=== PATIENT | male | born 1985 | race Caucasian/White ===

== ENCOUNTER 2017-04-05 21:44 | Emergency (ER) | payer OTHER ==
[2017-04-06 00:21] VITALS: BP 157/104
== END 2017-04-06 00:22 | disposition home or self-care (01) ==
LOC: ED 21:44
DX: T78.1XXA Other adverse food reactions, not elsewhere classified, initial encounter (principal); R06.7 Sneezing; I10 Essential (primary) hypertension; X58.XXXA Exposure to other specified factors, initial encounter
CPT/HCPCS: J0171; J1200; J2930; J3490; J7613; J7644

== ENCOUNTER 2018-06-03 02:09 | Emergency (ER) | payer SELFPAY ==
[~2018-06-03] VITALS: Ht 172.7 cm; Wt 96.6 kg
[2018-06-03 02:16] VITALS: Ht 172.7 cm; Wt 96.6 kg
[2018-06-03 02:40] LABS: BASOPHIL % 0.6 % (0-2); PLATELET COUNT 370 x10^3mcL (130-400); RED CELL DISTRIBUTION WIDTH 13.1 % (11.5-14.5)
[2018-06-03 02:49] LABS: CALCIUM 8.9 mg/dL (8.5-10.1); CARBON DIOXIDE 23.4 mmol/L (21-32); CHLORIDE SERUM 106 mmol/L (98-107); GFR1 > 60 mL/min; GLUCOSE SERUM 108 mg/dL (74-106); POTASSIUM SERUM 3.8 mmol/L (3.5-5.1); SODIUM SERUM 144 mmol/L (136-145)
[2018-06-03 04:24] LABS: AMPHETAMINE QUAL UR NONE DETECTED (See below)
[2018-06-03 04:51] VITALS: BP 133/90
== END 2018-06-03 04:51 | disposition home or self-care (01) ==
LOC: ED 02:09
PROVIDERS: Emergency Medicine
DX: R55 Syncope and collapse (principal); R42 Dizziness and giddiness; F43.9 Reaction to severe stress, unspecified; R51 Headache; M79.602 Pain in left arm; I10 Essential (primary) hypertension
CPT/HCPCS: 36415; G0480; Q0092

== ENCOUNTER 2019-02-03 07:11 | Emergency (ER) | payer MEDICAID ==
[~2019-02-03] VITALS: Ht 172.7 cm; Wt 103.4 kg
[2019-02-03 07:15] VITALS: Ht 172.7 cm; Wt 103.4 kg
[2019-02-03 08:04] LABS: BASOPHIL % 0.4 % (0-2); PLATELET COUNT 300 x10^3mcL (130-400); RED CELL DISTRIBUTION WIDTH 13.5 % (11.5-14.5)
[2019-02-03 08:25] LABS: CALCIUM 8.1 mg/dL (8.5-10.1); CHLORIDE SERUM 108 mmol/L (98-107); CREATININE SERUM 0.8 mg/dL (0.7-1.3); GFR1 > 60 mL/min; GLUCOSE SERUM 105 mg/dL (74-106); POTASSIUM SERUM 3.9 mmol/L (3.5-5.1); SODIUM SERUM 143 mmol/L (136-145)
[2019-02-03 08:30] LABS: ALBUMIN 3.1 g/dL (3.4-5.0); ALKALINE PHOSPHATASE 67 U/L (46-116); ALT/SGPT 31 U/L (16-63); AST/SGOT 13 U/L (15-37); BILIRUBIN TOTAL 0.24 mg/dL (0.20-1.00); CHOLESTEROL 172 mg/dL (<200); HDL CHOLESTEROL 52 mg/dL (40-60); PHOSPHOROUS 2.4 mg/dL (2.5-4.9); TOTAL PROTEIN, SERUM 6.4 g/dL (6.4-8.2); URIC ACID 5.1 mg/dL (3.5-7.2)
[2019-02-03 08:50] VITALS: BP 119/68
== END 2019-02-03 08:50 | disposition home or self-care (01) ==
LOC: ED 07:11
PROVIDERS: Emergency Medicine
DX: F10.239 Alcohol dependence with withdrawal, unspecified (principal); I10 Essential (primary) hypertension; Z86.73 Personal history of transient ischemic attack (TIA), and cerebral infarction without residual deficits; Y90.9 Presence of alcohol in blood, level not specified
CPT/HCPCS: J2060; J7030; Q0092

== ENCOUNTER 2019-03-06 04:26 | Emergency (ER) | payer MEDICAID ==
[~2019-03-06] VITALS: Ht 172.7 cm; Wt 96.6 kg
[2019-03-06 04:30] VITALS: Ht 172.7 cm; Wt 96.6 kg
[2019-03-06 05:01] LABS: BASOPHIL % 0.5 % (0-2); PLATELET COUNT 283 x10^3mcL (130-400); RED CELL DISTRIBUTION WIDTH 13.4 % (11.5-14.5)
[2019-03-06 05:07] LABS: microscopic required? NO
[2019-03-06 05:16] LABS: CALCIUM 9.1 mg/dL (8.5-10.1); CARBON DIOXIDE 25.1 mmol/L (21-32); CHLORIDE SERUM 105 mmol/L (98-107); CREATININE SERUM 0.9 mg/dL (0.7-1.3); GFR1 > 60 mL/min; GLUCOSE SERUM 128 mg/dL (74-106); POTASSIUM SERUM 3.5 mmol/L (3.5-5.1); SODIUM SERUM 141 mmol/L (136-145)
[2019-03-06 05:22] LABS: UA SPECIFIC GRAVITY >=1.030 (1.005-1.035); urine erythrocyte NEGATIVE (NEGATIVE)
[2019-03-06 05:30] LABS: ALBUMIN 3.7 g/dL (3.4-5.0); ALKALINE PHOSPHATASE 81 U/L (46-116); ALT/SGPT 44 U/L (16-63); AST/SGOT 17 U/L (15-37); BILIRUBIN TOTAL 0.37 mg/dL (0.20-1.00); FREE T4 0.91 ng/dL (0.76-1.46); TOTAL PROTEIN, SERUM 7.5 g/dL (6.4-8.2)
[2019-03-06 05:33] LABS: AMPHETAMINE QUAL UR NONE DETECTED (See below)
[2019-03-06 05:56] VITALS: BP 142/43
== END 2019-03-06 05:56 | disposition home or self-care (01) ==
LOC: ED 04:26
PROVIDERS: Emergency Medicine
DX: R20.2 Paresthesia of skin (principal); F10.99 Alcohol use, unspecified with unspecified alcohol-induced disorder; I10 Essential (primary) hypertension; Z86.73 Personal history of transient ischemic attack (TIA), and cerebral infarction without residual deficits
CPT/HCPCS: 84439; G0480; J2060; Q0092

== ENCOUNTER 2019-05-19 15:31 | Emergency (ER) | payer SELFPAY ==
[~2019-05-19] VITALS: Ht 170.2 cm; Wt 96.2 kg
[2019-05-19 15:34] VITALS: Ht 170.2 cm; Wt 96.2 kg
[2019-05-19 16:28] LABS: BASOPHIL % 0.5 % (0-2); PLATELET COUNT 347 x10^3mcL (130-400); RED CELL DISTRIBUTION WIDTH 12.8 % (11.5-14.5)
[2019-05-19 16:43] LABS: CALCIUM 9.1 mg/dL (8.5-10.1); CARBON DIOXIDE 26.5 mmol/L (21-32); CHLORIDE SERUM 104 mmol/L (98-107); CREATININE SERUM 0.9 mg/dL (0.7-1.3); GFR1 > 60 mL/min; GLUCOSE SERUM 99 mg/dL (74-106); POTASSIUM SERUM 3.7 mmol/L (3.5-5.1); SODIUM SERUM 141 mmol/L (136-145)
[2019-05-19 16:48] LABS: ALBUMIN 3.6 g/dL (3.4-5.0); ALKALINE PHOSPHATASE 85 U/L (46-116); ALT/SGPT 36 U/L (16-63); AST/SGOT 24 U/L (15-37); BILIRUBIN TOTAL 0.3 mg/dL (0.20-1.00); TOTAL PROTEIN, SERUM 7.6 g/dL (6.4-8.2)
[2019-05-19 18:35] VITALS: BP 147/91
== END 2019-05-19 18:35 | disposition home or self-care (01) ==
LOC: ED 15:31
PROVIDERS: Student in an Organized Health Care Education/Training Program
DX: R07.89 Other chest pain (principal); K29.70 Gastritis, unspecified, without bleeding; F10.239 Alcohol dependence with withdrawal, unspecified; I10 Essential (primary) hypertension
CPT/HCPCS: J2060; J2405; J7030; Q0092

== ENCOUNTER 2019-06-18 11:23 | Emergency (ER) | payer SELFPAY ==
[~2019-06-18] VITALS: Ht 172.7 cm; Wt 95.7 kg
[2019-06-18 11:58] VITALS: Ht 172.7 cm; Wt 95.7 kg
[2019-06-18 12:48] LABS: BASOPHIL % 0.9 % (0-2); PLATELET COUNT 310 x10^3mcL (130-400); RED CELL DISTRIBUTION WIDTH 13.7 % (11.5-14.5)
[2019-06-18 12:54] LABS: CALCIUM 8.5 mg/dL (8.5-10.1); CARBON DIOXIDE 30.8 mmol/L (21-32); CHLORIDE SERUM 103 mmol/L (98-107); CREATININE SERUM 0.8 mg/dL (0.7-1.3); GFR1 > 60 mL/min; GLUCOSE SERUM 111 mg/dL (74-106); POTASSIUM SERUM 3.8 mmol/L (3.5-5.1); SODIUM SERUM 141 mmol/L (136-145)
[2019-06-18 12:59] LABS: ALBUMIN 3.5 g/dL (3.4-5.0); ALKALINE PHOSPHATASE 76 U/L (46-116); ALT/SGPT 57 U/L (16-63); AST/SGOT 30 U/L (15-37); BILIRUBIN TOTAL 0.34 mg/dL (0.20-1.00); TOTAL PROTEIN, SERUM 7.3 g/dL (6.4-8.2)
[2019-06-18 16:45] VITALS: BP 147/101
== END 2019-06-18 16:45 | disposition home or self-care (01) ==
LOC: ED 11:23
PROVIDERS: Emergency Medicine
DX: R20.2 Paresthesia of skin (principal); R51 Headache; R07.89 Other chest pain; I10 Essential (primary) hypertension
CPT/HCPCS: 36415; Q0092

== ENCOUNTER 2019-06-18 17:28 | Emergency (ER) | payer SELFPAY ==
[~2019-06-18] VITALS: Ht 172.7 cm; Wt 95.3 kg
[2019-06-18 17:44] VITALS: Ht 172.7 cm; Wt 95.3 kg
[2019-06-18 20:27] VITALS: BP 138/81
== END 2019-06-18 20:27 | disposition home or self-care (01) ==
LOC: ED 17:28
DX: F10.10 Alcohol abuse, uncomplicated (principal); R53.1 Weakness; R42 Dizziness and giddiness; I10 Essential (primary) hypertension
CPT/HCPCS: J2060; J7030